=== PATIENT | female | born 1965 | race African-American/Black ===

== ENCOUNTER 2022-05-31 11:21 | Emergency (ER) | payer MEDICAID ==
[~2022-05-31] VITALS: Ht 160 cm; Wt 48.0 kg
[2022-05-31] MEDS ORDERED: IBUPROFEN 600MG TABLET PO STA (13:18)
[2022-05-31] MEDS ORDERED: LIDOCAINE 5% PATCH TOP SCH (13:30)
[2022-05-31] MEDS ORDERED: IBUP-2029 PO (16:48)
[2022-05-31 17:31] VITALS: BP 126/75
== END 2022-05-31 17:35 | disposition home or self-care (01) ==
LOC: ER 11:21
DX: R07.81 Pleurodynia (principal); N64.4 Mastodynia; R91.8 Other nonspecific abnormal finding of lung field; G89.11 Acute pain due to trauma; Z91.81 History of falling
CPT/HCPCS: 71045; 71100; 93005; 99284

== ENCOUNTER 2025-02-25 05:48 | Emergency (ER) | payer MEDICAID, OTHER ==
[~2025-02-25] VITALS: Ht 167.6 cm; Wt 49.0 kg
[~2025-02-25 05:48] MED LIST: IBUP-1455 PO
[2025-02-25 05:58] VITALS: O2SAT 96
[2025-02-25] MEDS ORDERED: AMOX1TAB16 MT (06:51)
[2025-02-25] MEDS: TETANUS, DIPHTHERIA, PERTUSSIS VAC/PF 0.5ML (>10YR OLD) IM ONE (07:06)
[2025-02-25 07:07] VITALS: BP 117/66; PULSE 86; RESP 15; TEMP 36.8; O2SAT 99
== END 2025-02-25 07:08 | disposition home or self-care (01) ==
LOC: ER 05:48
DX: S61.452A Open bite of left hand, initial encounter (principal); Z79.1 Long term (current) use of non-steroidal anti-inflammatories (NSAID); W54.0XXA Bitten by dog, initial encounter; Y93.89 Activity, other specified; Y92.89 Other specified places as the place of occurrence of the external cause; Y99.8 Other external cause status
CPT/HCPCS: 90471; 90715; 99283